=== PATIENT | male | born 1950 | race Caucasian/White ===

== ENCOUNTER 2022-04-15 03:55 | Inpatient (IN) ==
[2022-04-15 04:26] LABS: ABS Eosinophils 0.5 10^3/ul (0-0.6); ABS Lymphocytes 0.9 10^3/ul (1.0-4.8); ABS Monocytes 0.7 10^3/ul (0-0.8); ABS Neutrophils 4.8 10^3/ul (1.5-7.7); Eosinophil % 6.9 %; Hematocrit 31 % (42-52); Hemoglobin 9.7 g/dL (14.0-18.0); Lymphocyte % 12.9 %; Mean Corpuscular HGB Conc 32 g/dL (31-36); Mean Corpuscular Hemoglobin 26 pg (27-31); Mean Corpuscular Volume 83 fL (80-94); Platelet Count 146 10^3/uL (150-450); Red Blood Count 3.72 10^6 /uL (4.18-5.48); Red Cell Distribution Width 18 % (10-15); White Blood Count 6.9 10^3/uL (3.5-10.8)
[2022-04-15 04:41] LABS: Urine Appearance Cloudy; Urine Bilirubin Negative (Negative); Urine Blood 2+ (Negative); Urine Color Straw; Urine Glucose Negative (Negative); Urine Ketones Negative (Negative); Urine Nitrite Negative (Negative); Urine Protein Negative (Negative); Urine Specific Gravity 1.014 (1.002-1.030); Urine Urobilinogen Negative (Negative)
[2022-04-15 04:58] LABS: Urine Bacteria 1+ (Absent); Urine Red Blood Cell 3+(>10/hpf) (Absent); Urine White Blood Cell 3+(>20/hpf) (Absent)
[2022-04-15 05:00] LABS: ALT 22 U/L (7-52); AST 15 U/L (13-39); Albumin 3.4 g/dL (3.2-5.2); Albumin/Globulin Ratio 1.5 (1-3); Alcohol, S < 13 mg/dL (<13); Alkaline Phosphatase 87 U/L (35-149); Anion Gap 3 mmol/L (2-11); Blood Urea Nitrogen 30 mg/dL (6-24); CO2 Carbon Dioxide 29 mmol/L (22-32); Calcium 9.3 mg/dL (8.6-10.3); Chloride 109 mmol/L (101-111); Globulin 2.2 g/dL (2-4); Glucose 124 mg/dL (70-100); Potassium 4.1 mmol/L (3.5-5.0); Sodium 141 mmol/L (135-145); Total Protein 5.6 g/dL (6.4-8.9); eGFR CKD-EPI 91.1 (>60)
[2022-04-15] MEDS ORDERED: cefTRIAXone 1 gm/50 mL D5W 1 GM/50 ML BAG IV ONE (05:31)
[2022-04-15] MEDS ORDERED: Iodixanol (CONTRAST) 320 MG/ML 100 ML SDV IV ONE (12:29)
[2022-04-15] MEDS ORDERED: Enoxaparin 40 MG/0.4 ML SYR SUBCUT SCH (16:00)
[2022-04-15 16:53] LABS: % Iron Saturation 13 % (15-55); Iron 49 ug/dL (50-212); Total Iron Binding Capacity 365 mcg/dL (250-450); Transferrin 261 mg/dL (203-362); Unsaturated Iron Binding 316 ug/dL
[2022-04-15 16:58] LABS: TSH Ultra Thyroid Stim Horm 7.51 mcIU/mL (0.34-5.60)
[2022-04-15 17:06] LABS: Ferritin 21.8 ng/mL (24-336)
[2022-04-15 17:09] LABS: Folate 6.57 ng/mL (5.90-24.80)
[2022-04-15 17:10] LABS: Vitamin B12 355 pg/mL (180-914)
[2022-04-15] MEDS ORDERED: Lactated Ringers 1000 ml BAG 1,000 ML IV SCH (18:00)
[2022-04-15] MEDS: Mometasone/Formoter 200/5 MDI INH SCH ×2 (20:16→20:28)
[2022-04-15] MEDS: Magnesium Hydroxide LIQ 30 ML UDC PO SCH (20:58)
[2022-04-15 23:48] LABS: Calcium 9.1 mg/dL (8.6-10.3); Magnesium 1.9 mg/dL (1.9-2.7); eGFR CKD-EPI 95.3 (>60)
[2022-04-16] MEDS ORDERED: Magnesium Sulfate IV 1GM/100ML 1 GM/100 ML BAG IV ONE (01:25)
[2022-04-16] MEDS ORDERED: cefTRIAXone 1 gm/50 mL D5W 1 GM/50 ML BAG IV SCH (06:00)
[2022-04-16 07:43] LABS: ABS Eosinophils 0.4 10^3/ul (0-0.6); ABS Lymphocytes 0.5 10^3/ul (1.0-4.8); ABS Monocytes 0.7 10^3/ul (0-0.8); ABS Neutrophils 4.5 10^3/ul (1.5-7.7); Eosinophil % 6.7 %; Hematocrit 31 % (42-52); Hemoglobin 9.8 g/dL (14.0-18.0); Lymphocyte % 8.5 %; Mean Corpuscular HGB Conc 32 g/dL (31-36); Mean Corpuscular Hemoglobin 26 pg (27-31); Mean Corpuscular Volume 83 fL (80-94); Mean Platelet Volume 8.6 fL (7.4-10.4); Platelet Count 129 10^3/uL (150-450); Red Blood Count 3.75 10^6 /uL (4.18-5.48); Red Cell Distribution Width 18 % (10-15); White Blood Count 6.2 10^3/uL (3.5-10.8)
[2022-04-16] MEDS: Mometasone/Formoter 200/5 MDI INH SCH ×2 (08:17→19:50)
[2022-04-16 08:25] LABS: Calcium 9.3 mg/dL (8.6-10.3); Potassium 4.2 mmol/L (3.5-5.0); eGFR CKD-EPI 98.6 (>60)
[2022-04-16] MEDS: Magnesium Hydroxide LIQ 30 ML UDC PO SCH (09:44)
[2022-04-17] MEDS: Mometasone/Formoter 200/5 MDI INH SCH ×2 (07:54→19:40)
[2022-04-18 06:17] LABS: Venous Bicarbonate HCO3 28.9 mmol/L (24-28)
[2022-04-18 06:18] LABS: ABS Eosinophils 0.3 10^3/ul (0-0.6); ABS Lymphocytes 0.8 10^3/ul (1.0-4.8); ABS Monocytes 0.8 10^3/ul (0-0.8); ABS Neutrophils 3.1 10^3/ul (1.5-7.7); Eosinophil % 5.6 %; Hematocrit 28 % (42-52); Hemoglobin 8.9 g/dL (14.0-18.0); Lymphocyte % 16.3 %; Mean Corpuscular HGB Conc 32 g/dL (31-36); Mean Corpuscular Hemoglobin 26 pg (27-31); Mean Corpuscular Volume 82 fL (80-94); Mean Platelet Volume 8.8 fL (7.4-10.4); Platelet Count 144 10^3/uL (150-450); Red Blood Count 3.42 10^6 /uL (4.18-5.48); Red Cell Distribution Width 18 % (10-15); White Blood Count 4.9 10^3/uL (3.5-10.8)
[2022-04-18 06:38] LABS: Calcium 8.9 mg/dL (8.6-10.3); Magnesium 2.1 mg/dL (1.9-2.7); eGFR CKD-EPI 92.1 (>60)
[2022-04-18] MEDS: Mometasone/Formoter 200/5 MDI INH SCH ×2 (06:54→19:04)
[2022-04-19 06:07] LABS: ABS Eosinophils 0.3 10^3/ul (0-0.6); ABS Lymphocytes 0.8 10^3/ul (1.0-4.8); ABS Monocytes 0.7 10^3/ul (0-0.8); ABS Neutrophils 3.8 10^3/ul (1.5-7.7); Hematocrit 30 % (42-52); Hemoglobin 9.1 g/dL (14.0-18.0); Lymphocyte % 14.2 %; Mean Corpuscular HGB Conc 31 g/dL (31-36); Mean Corpuscular Hemoglobin 25 pg (27-31); Mean Corpuscular Volume 83 fL (80-94); Platelet Count 154 10^3/uL (150-450); Red Cell Distribution Width 18 % (10-15); White Blood Count 5.7 10^3/uL (3.5-10.8)
[2022-04-19 06:29] LABS: Calcium 9.1 mg/dL (8.6-10.3); Potassium 4.2 mmol/L (3.5-5.0); eGFR CKD-EPI 97.3 (>60)
[2022-04-19] MEDS: Mometasone/Formoter 200/5 MDI INH SCH (08:38)
[2022-04-19 12:01] VITALS: BP 115/54
== END 2022-04-19 15:55 | disposition home or self-care (01) | DRG 57 ==
LOC: ED 03:55 → EDHOLD 03:55 → SSU 17:41 → SUATTDRO 04-16 12:35
PROVIDERS: ADMIT Internal Medicine; ATTEND Family Medicine

== ENCOUNTER 2023-06-20 07:24 | Inpatient (IN) ==
[2023-06-20 08:10] LABS: ABS Lymphocytes 0.2 10^3/uL (1.0-4.8); ABS Monocytes 0.8 10^3/uL (0.0-1.1); ABS Neutrophils 18.2 10^3/uL (1.5-7.6); ABS Nucleated RBC 0.01 10^3/ul; Eosinophil % 0.1 %; Hematocrit 36.6 % (38-53); Hemoglobin 11.9 g/dL (13.2-16.3); Lymphocyte % 1.2 %; Mean Corpuscular Hemoglobin 26.3 pg (27-33); Mean Corpuscular Hgb Conc 32.5 g/dL (31-36); Mean Corpuscular Volume 81.1 fL (80-97); Mean Platelet Volume 9.5 fL (7.5-11.2); Nucleated Red Blood Cells % 0.1 %/100WBC (0.0-0.8); Platelet Count 163 10^3/uL (150-450); Red Blood Count 4.51 10^6/uL (4.06-5.63); White Blood Count 19.3 10^3/uL (3.6-10.2)
[2023-06-20 08:19] LABS: INR 2.83 (0.83-1.13)
[2023-06-20 08:32] LABS: ALT 15 U/L (7-52); Albumin 3.4 g/dL (3.2-5.2); Albumin/Globulin Ratio 1.3 (1-3); Alkaline Phosphatase 74 U/L (35-149); Anion Gap 11 mmol/L (2-16); Blood Urea Nitrogen 32 mg/dL (6-24); CO2 Carbon Dioxide 24 mmol/L (22-32); Chloride 97 mmol/L (101-111); Creatinine, Serum 1.42 mg/dL (0.67-1.17); Globulin 2.6 g/dL (2-4); Glucose 309 mg/dL (70-100); Sodium 132 mmol/L (135-145); Total Bilirubin 0.4 mg/dL (0.2-1.0); eGFR CKD-EPI 51.9 (>60)
[2023-06-20 08:35] LABS: High Sens Troponin Baseline 23 pg/mL (<20)
[2023-06-20] MEDS: Lactated Ringers 1000 ml BAG 1,000 ML IV ONE ×2 (09:03→19:40)
[2023-06-20] MEDS: Vancomycin 1,500 MG in NS 0.9% 250 ml 250 ML IVPB ONE (09:13)
[2023-06-20 09:19] LABS: Potassium Redraw 3.7 mmol/L (3.5-5.0)
[2023-06-20] MEDS: Iodixanol (CONTRAST) 320 MG/ML 100 ML SDV IV ONE (09:58)
[2023-06-20 11:04] LABS: Urine Appearance Cloudy; Urine Bilirubin Negative (Negative); Urine Blood 3+ (Negative); Urine Color Yellow; Urine Glucose 3+(>=500 mg/dL) (Negative); Urine Ketones Negative (Negative); Urine Nitrite Negative (Negative); Urine Protein 1+(30 mg/dL) (Negative); Urine Specific Gravity 1.029 (1.002-1.030); Urine Urobilinogen Negative (Negative)
[2023-06-20 11:10] LABS: Urine Bacteria Absent (Absent); Urine Red Blood Cell 3+(>10/hpf) (Absent); Urine White Blood Cell 3+(>20/hpf) (Absent)
[2023-06-20] MEDS: Lactated Ringers 1000 ml BAG 1,000 ML IV SCH (12:59)
[2023-06-20] MEDS ORDERED: Vancomycin per Pharmacy 1 EA NOTE FOLLOW UP SCH (13:00)
[2023-06-20] MEDS ORDERED: Dextrose 50% Syringe 50 ml 25 GM/50 ML SYRINGE IV PUSH PRN (14:08)
[2023-06-20] MEDS: Cefepime 2 GM in Dextrose 2 GM/50 ML BAG IV SCH ×2 (14:36→16:34)
[2023-06-20] MEDS: Nystatin TOP POWDER 15 GM BTL TOPICAL SCH (16:31)
[2023-06-20] MEDS: Insulin GLARGINE 100 un/ml 10 ml VIAL SUBCUT ONE (17:05)
[2023-06-21 07:56] LABS: ABS Lymphocytes 0.4 10^3/uL (1.0-4.8); ABS Monocytes 0.5 10^3/uL (0.0-1.1); ABS Neutrophils 8.2 10^3/uL (1.5-7.6); Eosinophil % 0.1 %; Hematocrit 31.8 % (38-53); Hemoglobin 10.5 g/dL (13.2-16.3); Lymphocyte % 4.8 %; Mean Corpuscular Hemoglobin 26.7 pg (27-33); Mean Corpuscular Hgb Conc 33.1 g/dL (31-36); Mean Corpuscular Volume 80.6 fL (80-97); Mean Platelet Volume 9.7 fL (7.5-11.2); Platelet Count 117 10^3/uL (150-450); Red Blood Count 3.95 10^6/uL (4.06-5.63); Red Cell Distribution Width 17.9 % (12-17); White Blood Count 9.2 10^3/uL (3.6-10.2)
[2023-06-21 08:10] LABS: Calcium 8.5 mg/dL (8.6-10.3); Creatinine, Serum 1.29 mg/dL (0.67-1.17); Magnesium 1.9 mg/dL (1.9-2.7); Potassium 3.9 mmol/L (3.5-5.0); eGFR CKD-EPI 58.2 (>60)
[2023-06-21] MEDS: Insulin GLARGINE 100 un/ml 10 ml VIAL SUBCUT SCH (10:36)
[2023-06-21] MEDS: Vancomycin 1000 MG in NS 0.9% 250 ML IVPB SCH (11:41)
[2023-06-21] MEDS: cefTRIAXone 2 gm/50 mL D5W 2 GM/50 ML BAG IV SCH (13:59)
[2023-06-21 18:43] VITALS: BP 159/94
[2023-06-23] MEDS ORDERED: Vancomycin Trough Check NOTE FOLLOW UP ONE (08:30)
== END 2023-06-21 20:43 | disposition short-term general hospital (02) | DRG 872 ==
LOC: ED 07:24 → SUATTDRO 11:31 → EDHOLD 11:31 → MED 13:30
PROVIDERS: ADMIT Internal Medicine; ATTEND Student in an Organized Health Care Education/Training Program